=== PATIENT | female | born 1985 | race Native Hawaiian/Other Pacific Islander ===

== ENCOUNTER 2024-04-27 09:29 | Outpatient (REF) | payer MEDICAID, SELFPAY ==
[2024-04-27 11:24] LABS: MANUAL DIFF FLAG NO
[2024-04-27 11:30] LABS: Basophils Percent Auto 0.9 % (0-2); Eosinophils Absolute Auto 0.1 X10*3/uL (0.0-0.4); Eosinophils Percent Auto 2.7 % (0-4); Hematocrit 33.6 % (37.0-47.0); Hemoglobin 11.8 g/dl (12.0-16.0); Imm Gran Abs Auto 0.01 X10*3/uL (0.00-0.03); Imm Gran Pct Auto 0.2 % (0.0-0.4); Lymphocytes Absolute Auto 1.5 X10*3/uL (1.2-4.9); Lymphocytes Percent Auto 34.2 % (20-40); Mean Corpuscular HGB Conc 35.1 g/dl (31.0-35.0); Mean Corpuscular Hemoglobin 31.1 pg (27.0-33.0); Mean Corpuscular Volume 88.7 fL (80.0-98.0); Mean Platelet Volume 10.8 fL (9.4-12.3); Monocytes Absolute Auto 0.3 X10*3/uL (0.1-1.2); Neutrophils Absolute Auto 2.5 x10*3/uL (2.0-8.3); Platelet Count 289 X10*3/uL (160-400); Red Blood Count 3.79 X10*6/uL (4.20-5.50); Red Cell Distribution Width 12.9 % (11.0-16.0); White Blood Count 4.5 X10*3/uL (4.8-10.8)
[2024-04-27 12:09] LABS: Syphilis Screen Nonreactive (Nonreactive)
[2024-04-27 12:10] LABS: HBS Num1 0.68 mIU/mL (0-7.99); HBc Num1 0.11 S/CO (0.00-0.79); HBsAGNum1 0.29 S/CO (0.00-0.99); HIV AB/AG Nonreactive (Nonreactive); HIV Num 1 0.07 S/CO (0.00-0.99); Hepatitis A Antibody IgM 0.32 Index (0-0.79); Hepatitis B Core Antibody Nonreactive (Nonreactive); Hepatitis B Surface Antigen Negative (Negative); ~HepC Num1 0.12 S/CO (0.00-0.79); ~Hepatitis A Antibody IgM Nonreactive (Nonreactive); ~Hepatitis B Surface Antibody NONREACTIVE (Nonreactive); ~Hepatitis C Antibody Nonreactive (Nonreactive)
[2024-04-27 12:11] LABS: Alanine Aminotransferase 16 U/L (0-31); Albumin Level 4.1 g/dL (3.5-5.0); Alkaline Phosphatase 71 U/L (39-117); Anion Gap 9 (12-20); Aspartate Amino Transferase 19 U/L (5-31); Bilirubin Total 0.7 mg/dL (0.0-1.0); Blood Urea Nitrogen 12 mg/dL (9-16); Calcium 9.2 mg/dL (8.4-10.2); Carbon Dioxide 26 mmol/L (22-29); Chloride 108 mmol/L (96-108); Cholesterol 197 mg/dL (<200); Estimated Glomerular Filt Rate > 60; Glucose Random 94 mg/dL (60-115); HDL Cholesterol 48 mg/dL (>40); LDL Cholesterol Calculated 132 mg/dL (<100); Potassium 3.7 mmol/L (3.3-5.1); Sodium 139 mmol/L (135-145); Triglycerides 89 mg/dL (<150); Vitamin D 25-OH Total 16.7 ng/mL (>30)
[2024-04-27 12:47] LABS: Reflex LDLD? No
[2024-04-28 21:08] LABS: Rubeola IgG (Measles) <13.50 AU/mL
== END 2024-04-27 09:30 | disposition home or self-care (01) ==
LOC: HO.HHCL 09:29
PROVIDERS: Visit Provider Internal Medicine
DX: R10.13 Epigastric pain (principal); Z30.09 Encounter for other general counseling and advice on contraception; H53.453 Other localized visual field defect, bilateral
CPT/HCPCS: 36415; 80053; 80061; 82306; 84443; 85025; 86704; 86706; 86709; 86735; 86762; 86765; 86780; 86803; 87338; 87340; 87389

== ENCOUNTER 2024-04-27 14:43 | Outpatient (REF) | payer MEDICAID, SELFPAY | END 2024-04-27 14:44 | disposition home or self-care (01) | LOC: HO.HHCL 14:43 | PROVIDERS: Pediatrics; Visit Provider Internal Medicine | DX: R10.13 Epigastric pain (principal) | CPT/HCPCS: 87338 ==

== ENCOUNTER 2024-05-10 11:12 | Outpatient (REF) | payer MEDICAID, SELFPAY ==
[2024-05-10 14:25] LABS: Ferritin 14 ng/mL (10-122); Iron 119 mcg/dL (30-160); Percent Iron Saturation 35 % (15-50); Total Iron Binding Capacity 344 mcg/dL (228-428); Unsaturated Iron Binding 225 ug/dL
[2024-05-10 14:31] LABS: Folate 12.2 ng/mL (> or = 4.0); Vitamin B12 325 pg/mL (200-900)
== END 2024-05-10 11:13 | disposition home or self-care (01) ==
LOC: HO.HHCL 11:12
PROVIDERS: Visit Provider Internal Medicine
DX: D64.9 Anemia, unspecified (principal)
CPT/HCPCS: 36415; 82607; 82728; 82746; 83540

== ENCOUNTER 2025-06-11 16:44 | Outpatient (REF) | payer MEDICAID, SELFPAY ==
--- OUTSIDE RECORDS SUMMARY | 2025-06-11 14:20 | XMS_ITS | Encounter Summary ---
Author Organization [employer] Address [address] [facility] 7t [place] [address] Care Team Providers Care Wire Bender Hand Name Role Phone Saba Sadler MD Primary Care Provider + Reason for Visit * Reason Comments UTI Fever Encounter Details Date Type Department Care Team (Late st Contact Info) Description 06/11/2025 2:20 PM EDT Office Visit [facility] [address], [place] [phone] Name, MD Vidal [address] [place] [address] Complicated UTI (urinary tract infection) (Primary Dx); Fever, unspecified fever cause Social History Tobacco Use Types Packs/Day Years Used Date Smoking Tobacco: Never Smokeless Tobacco: Never Tobacco Cessation:Counseling Given: Not Answered Alcohol Use Standard Drinks/Week Comments Never 0 (1 standard drink = 0.6 oz pur e alcohol) Depression Answer Date Recorded Patient Health Questionnaire-9 Score 4 04/26/2024 Patient Health Questionnaire-9 Score 4 04/26/2024 Last PHQ-9: Questionnaire Data Not on file 0 04/26/2024 Housing Stability Answer Date Recorded What is your housing situation today? I do not have housing (Staying with others, in a hotel, in a senior care, living outside on the street, on a beach, in a car, or in a park 04/26/[address] you li ve. Do you have problems with any of the following? None of the above 04/26/2024 Food Insecurity Answer Date Recorded Within the past 12 months, y ou worried that your food would run out before you got money to buy more: Often true 04/26/2024 Within the past 12 months,th e food you bought just didn't last and you didn't have enough money to get more: Often true 06/2024 Transportation Answer Date Recorded In the past 12 months, has l ack of transportation kept you from medical appts, meetings, work or from getting things needed for daily living? No 04/26/2024 Utilities Answer Date Recorded In the past 12 months, has t he electric, gas, oil or water company threatened to shut off services in your home? No 04/26/2024 Depression Answer Date Recorded Patient Health Questionnaire-2 Score 2 04/26/2024 Internet Access Answer Date Recorded Internet Access Q1 No 04/26/2024 Internet Access Q2 I do not want or need it 04/16 Comments No Sex and Gender Information Value Date Recorded Sex Assigned at Female 02/04/2023 8:56 AM EDT Legal Sex Female 10:38 AM EDT Gender Identity Female 02/04/2023 8:56 AM EDT Sexual Orientation Don't know 02/04/2023 8: 56 AM EDT documented as of this encounter Last Filed Vital Signs Vital Sign Reading Time Taken Comments Blood Pressure 119/63 06/11/2025 2:21 PM EDT Pulse 92 06/11/2025 2:21 PM EDT Temperature 39.2 C (102.6 F) 06/11/2025 2:21 PM EDT Respiratory Rate 16 06/11/2025 2:21 PM EDT Oxygen Saturation - - Inhaled Oxygen Concentration - - Weight 63.7 kg (140 lb 6.4 oz) 06/11/2025 2:21 P M EDT Height 149.9 cm (4' 11 ) 06/11/2025 2:21 PM EDT Body Mass Index 28.36 06/11/2025 2:21 PM EDT documented in this encounter Progress Notes * Vidal Gleason MD - 06/11/2025 2:20 PM EDT Subjective Patient ID: Leesa Khan is a 40 y.o. female who presents for UTI and Fever. Patient presents for a sick visit complaining of 1 week of fever, chills, body aches, urinary frequency, suprapubic discomfort and CV angle discomfort. She does not have any respiratory symptoms. No vaginal discharge. She has not been sexually active in more than a month. Her last menstrual period was 2 weeks ago. No recent antibiotic use. Review of Systems Constitutional: Positive for chills and fever. HENT: Negative for sore throat. Respiratory: Negative for cough, shortness of breath and wheezing. Cardiovascular: Negative for chest pain, palpitations and leg swelling. Gastrointestinal: Negative for abdominal pain. Genitourinary: Positive for dysuria, frequency and urgency. Negative for hematuria, menstrual problem, pelvic pain and vaginal discharge. Objective Vitals: 06/11/25 1421 BP: 119/63 BP Location: Right arm Patient Position: Sitting BP Cuff Size: Adult Pulse: 92 Resp: 16 Temp: (!) 102.6 ??F (39.2 ??C) TempSrc: Oral Weight: 140 lb 6.4 oz (63.7 kg) Height: 4' 11 (1.499 m) Physical Exam Constitutional: General: She is not in acute distress. Appearance: She is not toxic-appearing. Cardiovascular: Rate and Rhythm: Normal rate and regular rhythm. Pulmonary: Effort: Pulmonary effort is normal. No respiratory distress. Breath sounds: No wheezing. Abdominal: Comments: Mild discomfort on deep palpation of the suprapubic area Genitourinary: Comments: CV angle discomfort on palpation Latest Reference Range & Units 06/11/25 14:33 06/11/25 14:35 06/11/25 14:38 Color, UA Dark Meagan Specific [place], UA 1.015 pH, UA 6.5 Ketones, UA Negative Protein, UA Many Nitrite, UA Negative, None Detected Negative RBC, UA Negative, None Detected Positive ! Clarity, UA Cloudy Glucose, UA Negative Leukocytes, UA Negative, Rare, Trace Many ! Bilirubin UA Negative Urobilinogen, UA 0.2 Influenza A Negative, Indeterminate Negative Influenza B Negative, Indeterminate Negative Rapid COVID Ag Negative Appearance, UA dark yellow !: Data is abnormal Assessment/Plan Diagnoses and all orders for this visit: Complicated UTI (urinary tract infection) Comments: Patient history and exam is consistent with complicated UTI. We will send the urine for culture. She was prescribed 7 days of Cipro , she was recommended rest, drink plenty of fluids acetaminophen asneeded, call or come back if she does not feel much better in the next 48 hours. Orders: - POCT Urinalysis - Urinalysis, Complete, with Reflex to Culture; Future Fever, unspecified fever cause - POCT Rapid Covid-19 BinaxNOW - POCT Rapid Influenza A FLORIAN ID NOW - POCT Rapid Influenza B FLORIAN ID NOW Other orders - ciprofloxacin (Cipro) 500 MG tablet; Take 1 tablet (500 mg) by mouth 2 times daily for 7 days. - acetaminophen (Tylenol 8 Hour) 650 MG ER tablet; Take 1 tablet (650 mg) by mouth every 8 (eight) hours if needed for mild pain. Do not crush, chew, or split. Future Appointments Date Time Provider Department Center 07/03/2025 2:00 PM Natacha Gillespie AD[facility] DENT [facility] 07/17/2025 10:30 AM Saba Sadler MD MEDICINE [facility] documented in this encounter Plan of Treatment Upcoming Encounters Date Type Department Care Team (Late st Contact Info) Description 07/03/2025 2:00 PM EST Office Visit [facility] [address] [place] [address] Natacha Gillespie [address] [place] [address] 07/17/2025 10:30 AM EST Procedure Visit [facility] [address] [place] [address] Saba Sadler MD [address] [place], [place] [phone] Scheduled Orders Name Type Priority Associated Diagnoses Orde r Schedule Urinalysis, Complete, with Reflex to Culture Lab Routine Complicated UTI (urinary tract infection) Expected: 06/11/2025 (Approximate), Expires: 06/11/2026 documented as of this encounter Procedures Procedure Name Priority Date/Time Associated Diagnosis Comments POCT INFLUENZA B (ID NOW RAPID MOLECULAR) Routine 06/11/2025 2:38 PM EDT Fever, unspecified fever cause POCT INFLUENZA A (ID NOW RAPID MOLECULAR) Routine 06/11/2025 2:38 PM EDT Fever, unspecified fever cause POCT RAPID COVID ANTIGEN Routine 06/11/2025 2:35 PM EDT Fever, unspecified fever cause POCT URINALYSIS DIPSTICK Routine 06/11/2025 2:33 PM EDT Complicated UTI (urinary tract infection) documented in this encounter Results * POCT Rapid Influenza B FLORIAN ID NOW (06/11/2025 2:38 PM EDT) Influenza B Negative Negative, Indeterminate [facility] QC Media Lot # [id number] [facility] Lot# Expiration Date [facility] Swab 06/11/2025 2:38 PM EDT us Vidal Gleason MD POINT OF CARE TEST ENTER/EDIT OR DERABLES Final Result Performing Organization Address [facility] Co de Phone Number [facility] [address] [place] [phone] * POCT Rapid Influenza A FLORIAN ID NOW (06/11/2025 2:38 PM EDT) Influenza A Negative Negative, Indeterminate [facility] QC Media Lot # [id number] [facility] Lot# Expiration Date [facility] Swab 06/11/2025 2:38 PM EDT us Vidal Gleason MD POINT OF CARE TEST ENTER/EDIT OR DERABLES Final Result Performing Organization Address City/[facility]/ZIP Co de Phone Number [facility] [address] [place] [phone] * POCT Rapid Covid-19 BinaxNOW (06/11/2025 2:35 PM EDT) Rapid COVID Ag Negative QC Media Lot # [id number] Lot# Expiration Date [id number] Swab 06/11/2025 2:35 PM EDT us Vidal Gleason MD POINT OF CARE TEST ENTER/EDIT OR DERABLES Final Result * (ABNORMAL) POCT Urinalysis (06/11/2025 2:33 PM EDT) Color, UA Dark Meagan Clarity, UA Cloudy Glucose, UA Negative Bilirubin, UA Negative Ketones, UA Negative Spec Grav, UA 1.015 Blood, UA Positive(A) Negative, None Detected Comment:moderate pH, UA 6.5 Protein, UA Many Comment:30 mg/dL Urobilinogen, UA 0.2 Leukocytes, UA Many(A) Negative, Rare, Trace Comment:small Nitrite, UA Negative Negative, None Detected Appearance, UA dark yellow QC Media Lot # [id number] Lot# Expiration Date 04 Urine (Urine, Random) 06/11/2025 2:33 PM EDT Vidal Gleason MD POINT OF CARE TEST ENTER/EDIT OR DERABLES Final Result documented in this encounter Visit Diagnoses Diagnosis Complicated UTI (urinary tract infection)- Primary Fever, unspecified fever cause documented in this encounter Additional Health Concerns Assessment Noted Time PHQ-9 Depression Total Score: 4 04/26/20 24 9:39 AM EDT documented as of this encounter Care Teams Wire Bender Hand Relationship Specialty Start Date End Date Saba Sadler MD [address] [place] [phone] PCP - General Internal Medicine 04/26/24 documented as of this encounter
[2025-06-11 18:41] LABS: Appearance Urine Cloudy; Glucose Urine UA Negative (Negative); PH 6.0 (5.0-9.0); Specific Gravity - Urine 1.015 (1.005-1.025); UMIC TRIGGER UACC YES
--- OUTSIDE RECORDS SUMMARY | 2025-06-11 19:21 | XMS_ITS | Encounter Summary ---
Author Organization [facility] Address [address] [place] [phone] Phone Care Team Providers Care Api Architect Name Role Phone Pcp, Unknown Primary Care Provider Unavailabl e Encounter Details Date Type Department Care Team (Late st Contact Info) Description 01/19/2023 Procedure Pass [facility], [facility] Scan - [facility] [address] [place] [address] Social History Tobacco Use Types Packs/Day Years Used Date Smoking Tobacco: Never Assessed Education Answer Date Recorded Are you interested in more education? Not on elsi e 01/19/2023 Are you concerned about learning? Not on file 01/19/2023 No 01/19/2023 No 01/19/2023 Digital Access Answer Date Recorded No 01/19/2023 No 01/19/2023 Reliable internet access at home? Not on file 01/19/2023 Device with a working camera? Not on file Intimate Partner Violence Answer Date R ecorded Are you denied basic needs s uch as food, clothing, or medical care? No 01/19/2023 In the past 12 months have y ou been in a relationship with a person who hurts, threatens, or tries to control you? No 01/19/2023 Are you denied basic needs s uch as food, clothing, or medical care? No 01/19/2023 In the past 12 months have y ou been in a relationship with a person who hurts, threatens, or tries to control you? No 01/19/2023 Comments Unknown Sex and Gender Information Value Date Recorded Sex Assigned at Not on file Legal Sex Female 5:11 PM EDT Gender Identity Not on file Sexual Orientation Not on file documented as of this encounter Functional Status * Calculated C-SSRS Risk Score (Lifetime/Recent) Answer Date of Assessment Author No Risk Indicated 01/19/2023 6:10 PM EDT Lion Lai RN * Fine Suicide Severity Rating Scale (Screener/Recent Self-Report) Question Answer Date of Assessment Author 1. Wish to be (Past 1 Month) No 023 6:10 PM EDT Lion Lai RN 2. Non-Specific Active Suici charly Thoughts (Past 1 Month) No 01/19/2023 6:10 PM EDT Owen Lai RN 6. Suicidal Behavior (Lifetime) No 6:10 PM EDT Lion Lai, OSVALDO documented as of this encounter Plan of Treatment Not on file documented as of this encounter Visit Diagnoses Not on filedocumented in this encounter Care Teams Api Architect Relationship Specialty Start Date End Date Pcp, Unknown PCP - General 01/19/23 documented as of this encounter Additional Source Comments The information contained in this document represents components of the legal health record. It is not the complete legal health record.[facility]
--- OUTSIDE RECORDS SUMMARY | 2025-06-11 19:21 | XMS_ITS | Encounter Summary ---
Author Organization [id number] Address [address] [facility] 7 [place] [address] Care Team Providers Care Instrument Sterilizer Name Role Phone Saba Sadler MD Primary Care Provider + Reason for Visit * Reason Onset Date Comments New patient 05/18/2023 Encounter Details Date Type Department Care Team (Late st Contact Info) Description 05/18/2023 Telephone [facility] [address], [place] [phone] Windy Leo MD [address] [place], [place] [phone] New patient Social History Tobacco Use Types Packs/Day Years Used Date Smoking Tobacco: Never Smokeless Tobacco: Never Alcohol Use Standard Drinks/Week Comments Defer 0 (1 standard drink = 0.6 oz pur e alcohol) Comments Unknown Sex and Gender Information Value Date Recorded Sex Assigned at Female 02/04/2023 8:56 AM EDT Legal Sex Female 10:38 AM EDT Gender Identity Female 02/04/2023 8:56 AM EDT Sexual Orientation Don't know 02/04/2023 8: 56 AM EDT documented as of this encounter Miscellaneous Notes * Telephone Encounter - Wood Mcgovern - 05/18/2023 4:10 PM EDT DERRICK Mclaughlin called pt to Offer [facility] appt. Pt demographics and insurance information were verified. Pt states following medical conditions: NO Pt reports taking medications: NO Pt given [facility] appt with Dr. Petty on 07/02/2023 10:15 am. Pt will be sent appt reminder card and medical release form and agrees to complete and to return to medical records prior to [facility] appt. documented in this encounter Plan of Treatment Upcoming Encounters Date Type Department Care Team (Late st Contact Info) Description 07/03/2025 2:00 PM EST Office Visit [facility] [address] [place] [address] Natacha Gillespie [address] [place] [address] 07/17/2025 10:30 AM EST Procedure Visit [facility] [address] [place] [address] Saba Sadler MD [address] [place] [address] documented as of this encounter Visit Diagnoses Not on filedocumented in this encounter Care Teams Instrument Sterilizer Relationship Specialty Start Date End Date Saba Sadler MD [address] [place] [phone] PCP - General Internal Medicine 04/26/24 documented as of this encounter
--- OUTSIDE RECORDS SUMMARY | 2025-06-11 19:21 | XMS_ITS | Clinical Summary ---
Author Organization [facility] Address [address] [place] [phone] Phone Care Team Providers Care Foster Winder Name Role Phone Pcp, Unknown Primary Care Provider Unavailabl e Allergies No known active allergies Medications ibuprofen (ADVIL,MOTRIN) 600 MG tablet Take 1 tablet (600 mg total) by mouth every 6 (six) hours as needed for pain (specific location in comments). 30 tablet 1 01/19/2023 Active Social History Tobacco Use Types Packs/Day Years [...] on file Sexual Orientation Not on file Last Filed Vital Signs Vital Sign Reading Time Taken Comments Blood Pressure 109/64 01/19/2023 5:40 PM EDT Pulse 65 01/19/2023 5:40 PM EDT Temperature 36.6 C (97.8 F) 01/19/2023 8:59 PM EDT Respiratory Rate 16 01/19/2023 8:59 PM EDT Oxygen Saturation 98% 01/19/2023 8:59 PM EDT Inhaled Oxygen Concentration - - Weight 65.8 kg (145 lb) 01/19/2023 5:40 PM EDT Height 145 cm (4' 9.09 ) 01/19/2023 5:40 PM EDT Body Mass Index 31.28 01/19/2023 5:40 PM EDT Plan of Treatment Health Maintenance Due Date Last Done Comments Adult Td,Tdap Booster 1986 DEPRESSION SCREENING 1998 SMOKING Hx and SMOKELESS TOB ACCO SCREENING 1999 HEPATITIS C SCREENING 2004 HIV ONE-TIME SCREENING (18-6 5 YEARS) 2004 PAP SMEAR 2007 SCREENING FOR DIABETES 2021 INFLUENZA VACCINE (#1) 2025 COVID-19 VACCINE ( - 2024-2 6 season) 2025 HEPATITIS A VACCINES Aged Out No long er eligible based on patient's age to complete this topic HIB VACCINES Aged Out No longer eligi ble based on patient's age to complete this topic MENINGOCOCCAL VACCINES (ACWY) Aged Out No longer eligible based on patient's age to complete this topic MENINGOCOCCAL VACCINES (B) Aged Out N o longer eligible based on patient's age to complete this topic PNEUMOCOCCAL VACCINES (0-49 years) Aged Out No longer eligible based on patient's age to complete this topic Medical Devices Not on file Insurance [employer] Member Subscriber Plan / Payer (Ef fective 2023-Present) Name:Leesa Khan Relation to Subscriber:Self Name:Leesa Khan Payer ID:[id number] Group ID:Not on file Type:Medicaid Address: [address] SAFETY NET FULL [employer] NET [employer] [place] [address] [place] [address] NET FULL [employer] Member Subscriber Plan / Payer (Ef fective 2023-Present) Name:Leesa Khan Relation to Subscriber:Self Name:Leesa Khan Payer ID:[id number] Group ID:Not on file Type:Medicaid Address: [address] SAFET[employer] NET FULL [employer] NET FULL Care Teams Foster Winder Relationship Specialty Start Date End Date Pcp, Unknown PCP - General 01/19/23 Additional Source Comments The information contained in this document represents components of the legal health record. It is not the complete legal health record.[facility]
--- OUTSIDE RECORDS SUMMARY | 2025-06-11 19:21 | XMS_ITS | Encounter Summary ---
Author Organization [employer] Address [address] [place] [address] Care Team Providers Care Brand Sales Consultant Name Role Phone Saba Sadler MD Primary Care Provider + Encounter Details Date Type Department Care Team (Latest Contact Info) Description 06/11/2025 Travel Social History Tobacco Use Types Packs/Day Years Used Date Smoking Tobacco: Never Smokeless Tobacco: Never Alcohol Use Standard Drinks/Week Comments Never 0 [...] with others, in a hotel, in a long-term, living outside on the street, on a [...] AM EDT documented as of this encounter Plan of Treatment Upcoming Encounters Date Type Department Care Team (Late st Contact Info) Description 07/03/2025 2:00 PM EST Office Visit [facility] [address] [place] [address] Verna, Natacha [address] [place] [address] 07/17/2025 10:30 AM EST Procedure Visit [facility] [address] [place] [address] Saba Sadler MD [address] [place] [address] documented as of this encounter Visit Diagnoses Not on filedocumented in this encounter Additional Health Concerns Assessment Noted Time PHQ-9 Depression Total Score: 4 04/26/20 24 9:39 AM EDT documented as of this encounter Care Teams Brand Sales Consultant Relationship Specialty Start Date End Date Saba Sadler MD [address] [place] [phone] PCP - General Internal Medicine 04/26/24 documented as of this encounter
--- OUTSIDE RECORDS SUMMARY | 2025-06-11 19:21 | XMS_ITS | Encounter Summary ---
Author Organization [employer] Address [address] [facility] 7t [place] [address] Care Team Providers Care Sales And Marketing Vice President Name Role Phone Saba Sadler MD Primary Care Provider + Reason for Visit * Reason Onset Date Comments telephone call 06/11/2025 Encounter Details Date Type Department Care Team ([facility] st Contact Info) Description 06/11/2025 Telephone [facility] [address] [place], [place] [phone] Saba Sadler MD [address] [place], [place] [phone] telephone call Social History Tobacco Use Types Packs/Day Years [...] with others, in a hotel, in a [place] [facility], living outside on the street, on a [...] encounter Miscellaneous Notes * Telephone Encounter - Edith Tejada RN - 06/11/2025 2:24 PM EDT Noted. Patient seen in [facility] today at 1pm, below concerns addressed. No further f/u needed at this time. * Telephone Encounter - Mechelle Charles - 06/11/2025 10:38 AM EDT Pt walked in stating since Wednesday she has been having pain near her pelvic area and every time she goes to urinate its hurting her. Best contact number is [phone] canadian speaking documented in this encounter Plan of Treatment Upcoming Encounters Date Type Department Care Team (Late st Contact Info) Description 07/03/2025 2:00 PM EST Office Visit [facility] [address] [place] [address] Kash Gillespiearis [address] [place] [address] 07/17/2025 10:30 AM EST Procedure Visit [facility] [address] [place] [address] Saba Sadler MD [address] [place] [address] documented as of this encounter Visit Diagnoses Not on filedocumented in this encounter Additional Health Concerns Assessment Noted Time PHQ-9 Depression Total Score: 4 04/26/20 24 9:39 AM EDT documented as of this encounter Care Teams Sales And Marketing Vice President Relationship Specialty Start Date End Date Saba Sadler MD [address] [place] [address] PCP - General Internal Medicine 04/26/24 documented as of this encounter
--- OUTSIDE RECORDS SUMMARY | 2025-06-11 19:21 | XMS_ITS | Encounter Summary ---
Author Organization [employer] Address [address] [facility] 7t [place] [address] Care Team Providers Care Toppiece Chopper Name Role Phone Erika Cruz DO Primary Care Provider [phone] Saba Sadler MD Primary Care Provider + Encounter Details Date Type Department Care Team (Late st Contact Info) Description 02/08/2023 Abstract [facility] [address] [place] [address] Social History Tobacco Use Types Packs/Day Years Used Date Smoking Tobacco: Never Smokeless Tobacco: Never Comments Unknown Sex and Gender Information Value Date Recorded Sex Assigned at Female 02/04/2023 8:56 AM EDT Legal Sex Female 10:38 AM EDT Gender Identity Female 02/04/2023 8:56 AM EDT Sexual Orientation Don't know 02/04/2023 8: 56 AM EDT COVID-19 Exposure Response Date Recorded In the last 10 days, have yo u been in contact with someone who was confirmed or suspected to have Coronavirus/COVID-19? No / Unsure 02/04/2023 8:54 AM EDT documented as of this encounter Plan of Treatment Upcoming Encounters Date Type Department Care Team (Late st Contact Info) Description 07/03/2025 2:00 PM EST Office Visit [facility] [address] [place] [address] Natacha Gillespie [address] [place] [address] 07/17/2025 10:30 AM EST Procedure Visit [facility] [address] [place] [address] Saba Sadler MD [address] [place] [address] documented as of this encounter Visit Diagnoses Not on filedocumented in this encounter Care Teams Toppiece Chopper Relationship Specialty Start Date End Date Erika Cruz DO [address] [place] [address] PCP - General Family Medicine 02/05/23 05/17/23 Saba Sadler MD [address] [place] [address] PCP - General Internal Medicine 04/26/24 documented as of this encounter
--- OUTSIDE RECORDS SUMMARY | 2025-06-11 19:21 | XMS_ITS | Clinical Summary ---
Author Organization [employer] Address [address] [place] [address] Care Team Providers Care Political Researcher Name Role Phone Saba Sadler MD Primary Care Provider + Allergies No known active allergies Medications multivitamin () 27-0.8 MG tablet Take 1 tablet by mouth Once per day. 30 tablet 11 04/26/20 24 Active omeprazole OTC (PriLOSEC OTC) 20 MG EC tablet Take 1 tablet (20 mg) by mouth before breakfast and before evening meal. 120 tablet 09/01/19 25 Active ibuprofen 600 MG tablet Take 1 tablet (600 mg) by mouth 3 times daily. 30 tablet 05/25/20 25 Active chlorhexidine (Peridex) 0.12 % solution Use 15 mL in the mouth or throat if needed (for mouthwash 15 ml for 30 seconds, swish and spit) for up to 14 days. 473 mL 05/28/20 25 025 Active ciprofloxacin (Cipro) 500 MG tablet Take 1 tablet (500 mg) by mouth 2 times daily for 7 days. 14 tablet 06/11/20 25 025 Active acetaminophen (Tylenol 8 Hour) 650 MG ER tablet Take 1 tablet (650 mg) by mouth every 8 (eight) hours if needed for mild pain. Do not crush, chew, or split. 30 tablet 06/11/20 25 Active acetaminophen (Tylenol 8 Hour) 650 MG ER tablet Take 1 tablet (650 mg) by mouth every 8 (eight) hours if needed for mild pain. Do not crush, chew, or split. 30 tablet 04/09/20 25 025 Discontinued ibuprofen 600 MG tablet Take 1 tablet (600 mg) by mouth 3 times daily. 20 tablet 1 04/09/20 25 025 Discontinued ibuprofen 800 MG tablet Take 1 tablet (800 mg) by mouth every 8 (eight) hours if needed for mild pain for up to 10 days. 15 tablet 05/04/20 25 025 acetaminophen (Tylenol 8 Hour) 650 MG ER tablet Take 1 tablet (650 mg) by mouth every 8 (eight) hours if needed for mild pain. Do not crush, chew, or split. 30 tablet 05/25/20 25 025 Discontinued(Re order (will not trigger notification to Pharmacy)) amoxicillin (Amoxil) 500 MG capsule Take 1 capsule (500 mg) by mouth every 8 (eight) hours for 7 days. 21 capsule 05/25/20 25 025 amoxicillin (Amoxil) 500 MG capsule Take 1 capsule (500 mg) by mouth every 8 (eight) hours for 7 days. 21 capsule 05/28/20 025 Discontinued ibuprofen 800 MG tablet Take 1 tablet (800 mg) by mouth every 8 (eight) hours if needed for mild pain for up to 10 days. 15 tablet 05/28/20 25 025 Discontinued acetaminophen (Tylenol 8 Hour) 650 MG ER tablet Take 1 tablet (650 mg) by mouth every 8 (eight) hours if needed for moderate pain for up to 10 days. Do not crush, chew, or split. 15 tablet 05/28/20 25 025 Discontinued Active Problems Problem Noted Date Diagnosed Date Dental abscess 04/09/2025 Pain 04/09/2025 Helicobacter pylori stool test positive 09/01/19 Assessment & Plan (09/01/2024 1:50 PM EST): S/P Prevpac treatment, mildly asymptomatic. Take Sucralfate PRN for abdominal pain for the next 2-5 days. Continue Omeprazole BID to complete 2 months treatment. FU in 2-3 weeks with CURE test if needed. Consider GI referral if symptoms do not resolve. Anemia 05/01/2024 Assessment & Plan (09/01/2024 1:53 PM EST): Most likely due to menstrual bleeding vs GI bleeding from gastritis. Due to current PUD symptoms I will hold on PO Iron pills. I gave her information on iron rich foods. FU hemoglobin in 3 months. Advised her to restart multivitamin as soon as possible. Vitamin D deficiency 05/01/2024 Pure hypercholesterolemia 05/01/2024 Assessment & Plan (09/01/2024 1:54 PM EST): Recommended moderate amount of exercise and increase consumption of fruit, vegetables, fish and high fiber foods. Should decrease consumption of highly saturated fats or trans fats. Patient will reschedule with me for pap smear. Patient will have COVID and Influenza vaccines administered today. Epigastric pain 04/26/2024 Assessment & Plan (04/26/2024 11:00 AM EDT): - most likely GERD, r/o h. 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 Secondary dental caries 04/01/2023 Acute cystitis 03/18/2023 Resolved Problems Problem Noted Date Diagnosed Date Resolved Date Decreased peripheral vision of both eyes 04/26/2024 08/30/2024 Assessment & Plan (04/26/2024 10:28 AM EDT): - needs eye clinic eval, will refer Encounters Date Type Department Care Team Description 06/11/2025 2:20 PM EDT Office Visit [facility] [address] [place] [id number] Name, MD Vidal Complicated UTI (urinary tract infection) (Primary Dx); Fever, unspecified fever cause 06/11/2025 Telephone [facility] [address] [place] [address] Saba Sadler MD telephone call 06/11/2025 Travel 05/28/2025 10:00 AM EDT Office Visit [facility] [address] [place] [address] Qi Fonseca, SRUTHI Gingivitis due to dental plaque with local contributing factor (Primary Dx) 05/25/2025 3:30 PM EDT Office Visit [facility] [address] [place] [address] Teodoro Lezama DDS Dental abscess (Primary Dx); Secondary dental caries 05/04/2025 9:00 AM EDT Office Visit [facility] [address] [place] [address] Qi Fonseca DDS Failing root canal (Primary Dx); Gingivitis due to dental plaque with local contributing factor 05/01/2025 Telephone [facility] [address] [place] [address] Saba Sadler MD appointment cancelled 05/01/2025 Telephone [facility] [address] [place] [address] Saba Sadler MD appt change 04/09/2025 10:00 AM EDT Office Visit [facility] [address] [place] [address] Teodoro Lezama DDS Dental abscess (Primary Dx); Pain from Last 3 Months Immunizations Immunization Administration Dates Next Due Influenza, seasonal, injectable, preservative fr ee 09/01/2024 Pfizer Covid-19 Vaccine 12+ 09/01/2024 Social History Tobacco Use Types Packs/Day Years [...] with others, in a hotel, in a residential, living outside on the street, on a [...] Don't know 02/04/2023 8: 56 AM EDT Last Filed Vital Signs Vital Sign Reading Time Taken Comments Blood Pressure 119/63 06/11/2025 2:21 PM EDT Pulse 92 06/11/2025 2:21 PM EDT Temperature 39.2 C (102.6 F) 06/11/2025 2:21 PM EDT Respiratory Rate 16 06/11/2025 2:21 PM EDT Oxygen Saturation 98% 04/26/2024 9:38 AM EDT Inhaled Oxygen Concentration - - Weight 63.7 kg (140 lb 6.4 oz) 06/11/2025 2:21 P M EDT Height 149.9 cm (4' 11 ) 06/11/2025 2:21 PM EDT Body Mass Index 28.36 06/11/2025 2:21 PM EDT Plan of Treatment Upcoming Encounters Date Type Department Care Team (Late st Contact Info) Description 07/03/2025 2:00 PM EST Office Visit [facility] [address] [place] [address] Natacha Gillespie [address] [place] [address] 07/17/2025 10:30 AM EST Procedure Visit [facility] [address] [place] [address] Saba Sadler MD [address] [place] [address] Health Maintenance Due Date Last Done Comments Disability Screening 1986 Alcohol/Substance Use Screening 1998 Family Planning (PISQ) 2001 HPV Vaccines (1 - 3-dose series) 2001 DTaP/Tdap/Td Vaccines (1 - Tdap) 2005 Hepatitis B Vaccines (1 of 3 - 19+ 3-dose series) 2005 Pap Smear 2007 Cervical Cancer Screening 2016 HPV/Cotest 2016 Dental Oral Exam 09/06/2023 03/05/2023 Dental Prophylaxis 09/11/2023 03/10/2023 Influenza Vaccine (#1) 2025 09/01/2024 Depression Screening 04/26/2025 04/26/2024, 04/26/20 24 SDOH Screening 04/26/2025 04/26/2024 Dental X-Ray: Full Mouth 03/06/2026 03/05/2023 Dental X-Ray: Bitewings 05/05/2026 05/04/20 25, 12/01/2023, 09/22/2023, Additional history exists Tobacco Screening 06/11/2026 06/11/2025 Zoster Vaccines (1 of 2) 2036 RSV Patients and Patients Aged 60 years or older (1 - 1-dose 75+ series) 2061 HIV Screening Completed 04/27/2024 Hepatitis C Screening Completed 04/27/2024 COVID-19 Vaccine Completed 09/01/2024 HIB Vaccines Aged Out No longer eligi ble based on patient's age to complete this topic Hepatitis A Vaccines Aged Out No long er eligible based on patient's age to complete this topic IPV Vaccines Aged Out No longer eligi ble based on patient's age to complete this topic Meningococcal B Vaccine Aged Out No l onger eligible based on patient's age to complete this topic Meningococcal Vaccine Aged Out No nat jeny eligible based on patient's age to complete this topic Pneumococcal Vaccine: Pediatrics (0 to 5 Years) and At-Risk Patients (6 to 49) Years Aged Out No longer eligible based on patient's age to complete this topic RSV under 20 months Aged Out No longe r eligible based on patient's age to complete this topic Rotavirus Vaccines Aged Out No longer eligible based on patient's age to complete this topic Procedures Procedure Name Priority Date/Time Associated Diagnosis [...] PM EDT Complicated UTI (urinary tract infection) CASE PRESENTATION, DETAILED AND EXTENSIVE TREATMENT PLANNING Routine 05/28/2025 10:00 AM EDT Gingivitis due to dental plaque with local contributing factor CONSULTATION - DIAGNOSTIC SERVICE PROVIDED BY DENTIST OR PHYSICIAN OTHER THAN REQUESTING DENTIST OR PHYSICIAN Routine 05/28/2025 10:00 AM EDT Gingivitis due to dental plaque with local contributing factor CASE PRESENTATION, DETAILED AND EXTENSIVE TREATMENT PLANNING Routine 05/25/2025 3:30 PM EDT INTRAORAL - PERIAPICAL FIRST RADIOGRAPHIC IMAGE Routine 05/25/2025 3:30 PM EDT LIMITED ORAL EVALUATION - PROBLEM FOCUSED Routine 05/25/2025 3:30 PM EDT CASE PRESENTATION, DETAILED AND EXTENSIVE TREATMENT PLANNING Routine 05/04/2025 9:00 AM EDT Failing root canal Gingivitis due to dental plaque with local contributing factor BITEWING - SINGLE RADIOGRAPHIC IMAGE Routine 05/04/2025 9:00 AM EDT Failing root canal Gingivitis due to dental plaque with local contributing factor INTRAORAL - PERIAPICAL FIRST RADIOGRAPHIC IMAGE Routine 05/04/2025 9:00 AM EDT Failing root canal Gingivitis due to dental plaque with local contributing factor LIMITED ORAL EVALUATION - PROBLEM FOCUSED Routine 05/04/2025 9:00 AM EDT Failing root canal Gingivitis due to dental plaque with local contributing factor CASE PRESENTATION, DETAILED AND EXTENSIVE TREATMENT PLANNING Routine 04/09/2025 10:00 AM EDT LIMITED ORAL EVALUATION - PROBLEM FOCUSED Routine 04/09/2025 10:00 AM EDT INTRAORAL - PERIAPICAL FIRST RADIOGRAPHIC IMAGE Routine 04/09/2025 10:00 AM EDT HEPATITIS PANEL, GENERAL Routine 04/27/2024 9:33 AM EDT Epigastric pain HIV 1/2 ANTIGEN/ANTIBODY, FOURTH GENERATION W/RFL Routine 04/27/2024 9:33 AM EDT Encounter for other general counseling or advice on contraception PROPHYLAXIS - ADULT Routine 03/10/2023 1 :00 PM EDT INTRAORAL - COMPLETE SERIES OF RADIOGRAPHIC IMAGES Routine 03/05/2023 11:00 AM EDT COMPREHENSIVE ORAL EVALUATION - NEW OR ESTABLISHED PATIENT Routine 03/05/2023 11:00 AM EDT from Last 3 Months or Most Recently Relevant to Health Maintenance Results * POCT Rapid Influenza B FLORIAN ID NOW (06/11/2025 2:38 PM EDT) [facility] Influenza B Negative Negative, Indeterminate [facility] QC Media Lot # [id number] [facility] Lot# Expiration Date [facility] Swab 06/11/2025 2:38 PM EDT us Vidalmary Gleason MD POINT OF CARE TEST ENTER/EDIT OR DERABLES Final Result [facility] [address] [place] [phone] * POCT Rapid Influenza A FLORIAN ID NOW (06/11/2025 2:38 PM EDT) [facility] Influenza A Negative Negative, Indeterminate [facility] QC Media Lot # [id number] [facility] Lot# Expiration Date [facility] Swab 06/11/2025 2:38 PM EDT Result [facility] POINT OF CARE TEST ENTER/EDIT OR DERABLES Final Result [facility] [address] [place] [phone] * POCT Rapid Covid-19 BinaxNOW (06/11/2025 2:35 PM EDT) [facility] Rapid COVID Ag Negative QC Media Lot # [id number] Lot# Expiration Date [id number] Swab 06/11/2025 2:35 PM EDT Result [facility] POINT OF CARE TEST ENTER/EDIT OR DERABLES Final Result * (ABNORMAL) POCT Urinalysis (06/11/2025 2:33 PM EDT) Pathologist [facility] Color, UA Dark Meagan Clarity, UA Cloudy Glucose, UA Negative Bilirubin, UA Negative Ketones, UA Negative Spec Grav, UA 1.015 Blood, UA Positive(A) Negative, None Detected Comment:moderate pH, UA 6.5 Protein, UA Many Comment:30 mg/dL Urobilinogen, UA 0.2 Leukocytes, UA Many(A) Negative, Rare, Trace Comment:small Nitrite, UA Negative Negative, None Detected Appearance, UA dark yellow QC Media Lot # [id number] Lot# Expiration Date [id number] Urine (Urine, Random) 06/11/2025 2:33 PM EDT Result [facility] POINT OF CARE TEST ENTER/EDIT OR DERABLES Final Result * Hepatitis Panel, General (04/27/2024 9:33 AM EDT) Pathologist [facility] Hepatitis A IgM Nonreactive Nonreactive [facility] Comment:IgM antibodies to CARTER V not detected; does not exclude earlyacute or recovered HAV infection. ~Hepatitis B Surface Antibody NONREACTIVE Nonreactive [facility] Comment:Nonreactive: < 8.00 mIU/mL Hepatitis B Core Antibody Nonreactive Nonreactive [facility] Hepatitis C Antibody Nonreactive Nonreactive [facility] Comment:Antibodies to HCV no t detected; does not exclude early acuteHCV infection. Hepatitis B Surface Ag Negative Negative [facility] Blood 04/27/2024 9:33 AM EDT 04/27/2024 11:19 AM EDT us Saba Sadler MD LAB BLOOD ORDERABLES Fin al Result Performing Organization Address [facility] Co de Phone Number [facility] [address] [place] [phone] * HIV-1/2 Antigen and Antibodies, Fourth Generation, with Reflexes (04/27/2024 9:33 AM EDT) HIV AB/AG Nonreactive Nonreactive [facility] Comment:HIV-1 p24 Ag and/or HIV-1/HIV-2 Ab not detected.A test result that is nonreactive does not exclude thepossibility of exposure to or infection with HIV-1 and/orHIV-2. Nonreactive results in this assay for individualswith prior exposure to HIV-1 and/or HIV-2 may be due toantigen and antibody levels that are below the limit ofdetection of this assay.The InhibOx HIV Ag/Ab Combo assay result andsupplemental assay results should be interpreted inconjunction with the patient's clinical presentation,history and other laboratory results. If the results areinconsistent with clinical evidence, additional testing issuggested to confirm the result. Blood Venous blood specimen / Unknown 04/27/2024 9:33 AM EDT 04/27/2024 11:19 AM EDT us Saba Sadler MD LAB BLOOD ORDERABLES Fin al Result Performing Organization Address City/[facility]/ZIP Co de Phone Number [facility] [address] [place] [phone] from Last 3 Months or Most Recently Relevant to Health Maintenance Insurance [place] F[place] DENTAL - HSN FULL (MEDICAID) DENTAL-[facility] MEDICAID LIMITED ADULT Care Teams Political Researcher Relationship Specialty Start Date End Date Saba Sadler MD [address] [place] [phone] PCP - General Internal Medicine 04/26/24
[2025-06-11 20:37] LABS: UACC Culture Trigger YES
== END 2025-06-11 16:45 | disposition home or self-care (01) ==
LOC: HO.HHCLNP 16:44
PROVIDERS: Visit Provider Internal Medicine Geriatric Medicine
DX: R39.9 Unspecified symptoms and signs involving the genitourinary system (principal)
CPT/HCPCS: 81001; 87086; 87088; 87186

== ENCOUNTER 2025-07-17 16:25 | Outpatient (REF) | payer MEDICAID, SELFPAY ==
--- OUTSIDE RECORDS SUMMARY | 2025-07-17 10:30 | XMS_ITS | Encounter Summary ---
Author Organization [facility] Address [address] [place] [address] Care Team Providers Care Manager Freelance Name Role Phone Saba Sadler MD Primary Care Provider + Reason for Visit * Reason Comments Gynecologic Exam Encounter Details Date Type Department Care Team (Latest Contact Info) Description 07/17/2025 10:30 AM EST Procedure Visit [facility] [address], [place] [phone] Saba Sadler MD [address] [place], [place] [phone] Encounter for cervical Pap smear with pelvic exam (Primary Dx); Encounter for other general counseling or advice on contraception; Other iron deficiency anemia; Vaginal discharge Social History Tobacco Use Types Packs/Day Years [...] with others, in a hotel, in a detention, living outside on the street, on a [...] Sign Reading Time Taken Comments Blood Pressure 100/62 07/17/2025 12:12 PM EST Pulse 80 07/17/2025 12:12 PM EST Temperature 36.4 C (97.6 F) 07/17/2025 12:12 PM EST Respiratory Rate 18 07/17/2025 12:12 PM EST Oxygen Saturation - - Inhaled Oxygen Concentration - - Weight 65.8 kg (145 lb) 07/17/2025 12:12 PM EST Height 149.9 cm (4' 11 ) 07/17/2025 12:12 PM EST Body Mass Index 29.29 07/17/2025 12:12 PM EST documented in this encounter Miscellaneous Notes * Patient Education Note - Saba Sadler MD - 07/17/2025 6:28 PM EST Images from the original note were not included. Patient Education Table of Contents Dieta con alto contenido de donna (Iron-Rich Diet) To view videos and all your education online visit, [email or web address] or scan this QR code with your smartphone. Access to this content will in one year. Dieta con alto contenido de donna Iron-Rich Diet El donna es un mineral que ayuda al organismo a producir hemoglobina. La hemoglobina es jose carlos prote?na de los gl?bulos rojos que transporta el ox?nellie a los tejidos del cuerpo. Consumir muy poco donna puede hacer que se sienta d?alexander y cansado, y aumentar thibodeaux riesgo de contraer infecciones. El hierroes un componente natural de muchos alimentos, y muchos otros alimentos tienen donna agregado (est?n fortificados con donna). Es posible que deba seguir jose carlos dieta con alto contenido de donna si no tiene suficiente dnona en el cuerpo debido a ciertas enfermedades. La cantidad de potasio que necesita diariamente depende de thibodeaux edad, thibodeaux sexo y las afecciones que pueda tener. Siga las recomendaciones de thibodeaux m?dico o nutricionista sobre la cantidad de donna que necesita consumir por d?a. ?Cu?les son algunos consejos para seguir nya plan? Thuy las etiquetas de los alimentos Thuy las etiquetas de los alimentos para saber la cantidad de miligramos (mg) de donna que hay en cada porci?n. Al cocinar [place] los alimentos en ollas de donna. [place] estas medidas para que el cuerpo pueda absorber el donna de ciertos alimentos con m?s facilidad: ? Antes de cocinarlos, remoje los frijoles lyla la noche. ? Remoje los cereales integrales lyla la noche y cu?lelos antes de usarlos para cocinar. ? Prepare un fermento con las harinas antes del horneado, por ejemplo, usando levadura en la masa del sanford. Planificaci?n de las comidas Cuando coma alimentos que contengan donna, debe comerlos con alimentos ricos en vitamina C. Entre ellos, se incluyen las naranjas, los pimientos, los tomates, las dana y el addie. La vitamina C ayuda al organismo a absorber el donna. Ciertos alimentos y bebidas impiden que el cuerpo absorba el donna adecuadamente. No consuma estosalimentos en la misma comida que aquellos con alto contenido de donna o con suplementos de donna.Estos alimentos incluyen: ? Caf?, t?? chi y vino tinto. ? Leche, productos l?cteos y alimentos con alto contenido de calcio. ? Porotos y soja. ? Cereales integrales. Informaci?n general [place] los suplementos de donna solamente harley se lo haya indicado el m?dico. La sobredosis de donna puede ser potencialmente mortal. Si le recetan suplementos de donna, t?melos con jugo de naranja o un suplemento de vitamina?C. Cuando coma alimentos fortificados con donna o tome un suplemento de donna, tambi?n debe consumiralimentos que contengan donna naturalmente, harley carne, aves y pescado. Consumir alimentos ricos en donna naturalmente ayuda al organismo a absorber el donna que se a?yany a otros alimentos o que contiene un suplemento. El donna de origen animal se absorbe mejor que el donna de origen vegetal. ?Qu?? alimentos shi comer? Frutas Ciruelas pasas. Pasas de uva. Consuma frutas con alto contenido de vitamina C, por ejemplo, naranjas, pomelos y fresas, junto conlos alimentos ricos en donna. Verduras [place] (cocida). Guisantes. Br?coli. Verduras fermentadas. Consuma verduras ricas en vitamina C, harley las verduras de hoja, las dana, los morrones y los tomates, junto con los alimentos ricos en donna. Granos Cereales para el desayuno fortificados con donna. [place] de ariadna integral fortificado con donna. Arroz enriquecido. Granos germinados. Delores y otras prote?nakul H?gado de res. Carne de rylee. [place]. Marcos. Ostras. Camarones. At?n. Bret. Garbanzos. Sera secos. Tofu. Semillas de calabaza. Bebidas Jugo de tomate. Jugo de naranja reci?n exprimido. Jugo de ciruelas. T?? de hibisco. Batidos de desayuno instant?neos fortificados con donna. Dulces y postres Melaza dayna. Ali?os y condimentos Tahini. Salsa de soja fermentada. Otros alimentos Germen de ariadna. Es posible que los productos mencionados arriba no formen jose carlos lista completa de las bebidas o los alimentos recomendados. Consulte a un nutricionista para obtener m?s informaci?n. ?Qu?? alimentos shi limitar? Estos son los alimentos que deben limitarse al comer alimentos ricos en donna, ya que pueden reducir la absorci?n de donna por parte del cuerpo. Granos Cereales integrales. Cereal de salvado. Harina de salvado. Delores y otras prote?nakul Soja. Productos elaborados a base de prote?na de la soja. Frijoles negros. Lentejas. Frijoles mungo. Guisantes secos. L?cteos Leche. Crema. Queso. Yogur. Reques?n. Bebidas Caf?. T?? chi. Vino tinto. Dulces y postres [place]. Chocolate. Helados. Ali?os y condimentos [place]. Or?gano. Grandes cantidades de perejil. Es posible que los productos que se enumeran m?s arriba no constituyan jose carlos lista completa de los alimentos y las bebidas que debe limitar. Consulte a un nutricionista para obtener m?s informaci?n. Resumen El donna es un mineral que ayuda al organismo a producir hemoglobina. La hemoglobina es jose carlos prote?na de los gl?bulos rojos que transporta el ox?nellie a los tejidos del cuerpo. El donna es un componente natural de muchos alimentos, y muchos otros alimentos tienen donna agregado (est?n fortificados con donna). Cuando coma alimentos que contengan donna, debe tomarlos con alimentos ricos en vitamina C. La vitamina C ayuda al organismo a absorber el donna. Ciertos alimentos y bebidas impiden que el cuerpo absorba el donna adecuadamente, harley los cereales integrales y los productos l?cteos. Debe evitar consumir estos alimentos en la misma comida que aquellos con alto contenido de donna o con suplementos de donna. Esta informaci?n no tiene harley fin reemplazar el consejo del m?dico. Aseg?rese de hacerle al m?dicocualquier pregunta que tenga. Document Released: 2007-05-19 Document Updated: 2021-08-09 Document Reviewed: 2024-07-16 Elsevier Patient Education ? 2024 TDX. * Patient Education Note - Saba Sadler MD - 07/17/2025 6:13 PM EST Images from the original note were not included. Patient Education Table of Contents Cirug?a para evitar el embarazo (esterilizaci?n): lo que hay que saber (Surgery to Prevent (Sterilization): What to Know) To view videos and all your education online visit, [email or web address] or scan this QR code with your smartphone. Access to this content will in one year. Cirug?a para evitar el embarazo (esterilizaci?n): lo que hay que saber Surgery to Prevent (Sterilization): What to Know La cirug?a para evitar el embarazo tambi?n se denomina esterilizaci?n. Es permanente. Solo debe hacerse si est?? seguro de que no quiere tener hijos. En las mujeres, se cierran o se extirpan las trompas de Falopio. [place] impide que los ?vulos que liberan los ovarios entren en el ?tero. El esperma es incapaz de alcanzar los ?vulos. En los hombres, el conducto deferente se corta y luego se sandhya o quema (cauteriza). El conducto deferente es el tubo que transporta los espermatozoides desde los test?culos. La cirug?a impide el embarazo, ya que impide que el esperma pase a kimberly?s del conducto deferente y del pene lyla la eyaculaci?n. Tipos de cirug?as para evitar el embarazo Para las mujeres, las cirug?as incluyen: Ligadura laparosc?pica de trompas. En esta cirug?a, las trompas de Falopio se cortan, se atan, se sellan con calor o se obstruyen con un clip, un anillo o jose carlos abrazadera. Tambi?n puede extraerse jose carlos parte sharlene?a de cada trompa de Falopio. Se realiza a kimberly?s de varios arguelles sharlene?os con instrumentos que se introducen en el vientre. Ligadura de trompas posparto. [place] se hace a las pocas horas o d?as de tener un beb?. En esta cirug?a, las trompas de Falopio se cortan, se atan, se sellan con calor o se obstruyen con un clip, un anillo o jose carlos abrazadera. Tambi?n puede extraerse jose carlos parte sharlene?a de cada trompa de Falopio. Se hace a kimberly?s de un ?tere karmen en el vientre. Ligadura de trompas lyla jose carlos litzy?yuliana. En esta cirug?a, las trompas de Falopio se cortan, se atan, se sellan con calor o se obstruyen con un clip, un anillo o jose carlos abrazadera. Tambi?n puede extraerse jose carlos parte sharlene?a de cada trompa de Falopio. Se realiza en el mismo momento que un parto por litzy?yuliana. Para los hombres, las cirug?as incluyen: Vasectom?a con incisi?n. Se realizan gustavo o dos sharlene?os arguelles en el escroto. El conducto deferentese saca del escroto y luego se corta. El conducto deferente se sandhya o sella con calor y se vuelve a colocar dentro del escroto. El karmen se cerrar?? con puntos absorbibles. Vasectom?a sin bistur?. Se practica jose carlos punci?n en el escroto. El conducto deferente se saca del escroto y luego se corta. El conducto deferente se sandhya o sella con calor y se vuelve a colocar dentro del escroto. La abertura es sharlene?a y no necesitar?? puntos. ?Qu?? ventajas tienen las intervenciones quir?rgicas para evitar el embarazo? Suelen funcionar para toda la inocente. En general, son seguras. No afectan a las hormonas femeninas harley otros tipos de anticonceptivos. Por ello, no se clayton?n afectados los per?odos. El deseo y el rendimiento sexual no se clayton?n afectados. ?Cu?les son las desventajas de las cirug?as que impiden el embarazo? Riesgos de la cirug?a Los riesgos son poco frecuentes. Thibodeaux m?dico conversar?? con usted sobre ellos. Estos incluyen lo siguiente: Sangrado. Infecci?n. Problemas con la cicatrizaci?n de la herida. Reacciones a los medicamentos utilizados. Lesiones en ?rganos adyacentes. Riesgos tras la intervenci?n Despu?s de jose carlos cirug?a exitosa, es posible que tenga otros problemas. Los riesgos para las mujeres pueden incluir: El procedimiento no tiene ?xito. La esterilizaci?n es efectiva en sanchez 100?%, dennise puede fallar. Encasos raros, con el tiempo, las trompas de Falopio pueden volver a desarrollarse. Si esto ocurre, la tamar podr?a volver a quedar embarazada. Embarazo ect?amada. Es un embarazo que crece fuera del ?tero. Puede requerir un tratamiento de urgencia. Los riesgos para los varones pueden incluir: Hemorragia e hinchaz?n en el escroto. El procedimiento no tiene ?xito. Hay jose carlos probabilidad muy sharlene?a de que los extremos atados o cauterizados del conducto deferente puedan reconectarse. En araceli essence, el hombre podr?a dejar embarazada a jose carlos tamar. Otros riesgos pueden incluir: Cambiar de opini?n y decidir que quiere tener hijos. Estas cirug?as pueden revertirse, dennise la reversi?n no funciona siempre. Falta de protecci?n contra las infecciones de transmisi?n sexual (ITS). Preguntas para hacerle al m?dico ?Cu?l es la eficacia de estas cirug?as? ?Qu?? tipo de cirug?a es adecuada para m?? ?Es posible revertir el procedimiento si cambio de parecer? ?Qu?? puedo esperar despu?s de la cirug?a? D?nde obtener m?s informaci?n [place] [employer] ([employer] Ginec?logos): acog.org U.S. Department of Health and Human Services (Departamento de Dinah y Servicios Humanos de los [place]): womenshealth.gov U[employer] (Fundaci?n de Cuidados Urol?gicos): urologyhealth.org Esta informaci?n no tiene harley fin reemplazar el consejo del m?dico. Aseg?rese de hacerle al m?dicocualquier pregunta que tenga. Document Released: 2009-01-18 Document Updated: 2024-08-23 Document Reviewed: 2024-08-23 Elsevier Patient Education ? 2024 [employer] documented in this encounter Plan of Treatment Upcoming Encounters Date Type Department Care Team (Late st Contact Info) Description 07/30/2025 2:30 PM EST Clinical Support [facility] [address] [place] [address] 10/08/2025 1:30 PM EST Office Visit [facility] DENTAL [address], [place] [phone] VernaNatacha [address] [place] [address] Scheduled Orders Name Type Priority Associated Diagnoses Order Schedule Pap Smear Pathology and Cytology Routine Encounter for cervical Pap smear with pelvic exam Vaginal discharge Ordered: 07/17/2025 Chlamydia/N. Gonorrhoeae RNA, TMA, Urogenitial Microbiology Routine Encounter for cervical Pap smear with pelvic exam Vaginal discharge Ordered: 07/17/2025 Bacterial Vaginosis Microbiology Routine Encounter for cervical Pap smear with pelvic exam Vaginal discharge Expected: 07/17/2025 (Approximate), Expires: 07/17/2026 Fecal Globin By Immunochemistry Lab Routine Other iron deficiency anemia Expected: 07/17/2025 (Approximate), Expires: 07/17/2026 Chlamydia/N. Gonorrhoeae RNA, TMA, Vaginal Microbiology Routine Encounter for cervical Pap smear with pelvic exam Vaginal discharge Ordered: 07/17/2025 documented as of this encounter Visit Diagnoses Diagnosis Encounter for other general counseling or advice on contraception Other iron deficiency anemia Vaginal discharge Leukorrhea, not specified as infective documented in this encounter Additional Health Concerns Assessment Noted Time PHQ-9 Depression Total Score: 4 04/26/20 24 9:39 AM EDT documented as of this encounter Care Teams Manager Freelance Relationship Specialty Start Date End Date Saba Sadler MD [address] [place] [id number] PCP - General Internal Medicine 04/26/24 documented as of this encounter
--- OUTSIDE RECORDS SUMMARY | 2025-07-17 17:21 | XMS_ITS | Clinical Summary ---
Author Organization [employer] Address [address] [place] [address] Care Team Providers Care Principle Industrial Hygienist Name Role Phone Saba Sadler MD Primary [...] times daily. 30 tablet 05/25/20 25 Active acetaminophen (Tylenol 8 Hour) 650 MG ER tablet Take 1 tablet (650 mg) by mouth every 8 (eight) hours if needed for mild pain. Do not crush, chew, or split. 30 tablet 06/11/20 25 Active albendazole (Albenza) 200 MG tablet Take 2 tablets (400 mg) by mouth 1 (one) time for 1 dose. 2 tablet 07/17/20 25 025 Active tinidazole (Tindamax) 500 MG tablet Take 4 tablets (2,000 mg) by mouth with breakfast for 3 days. 12 tablet 07/17/20 25 025 Active ferrous sulfate (Fe Tabs) 325 (65 Fe) MG EC tablet Take 1 tablet (325 mg) by mouth with breakfast. Do not crush, chew, or split. 90 tablet 07/17/2025 2:05 PM EST 07/17/20 25 Active sulfamethoxazo le-trimethopri m (Bactrim DS) 800-160 MG tablet Take 1 tablet by mouth 2 times daily for 7 days. 14 tablet 06/29/2025 11:49 AM EST 06/14/20 025 ferrous sulfate (Fe Tabs) 325 (65 Fe) MG EC tablet Take 1 tablet (325 mg) by mouth with breakfast, with lunch, and with evening meal. Do not crush, chew, or split. 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 Secondary dental caries 04/01/2023 Acute cystitis 03/18/2023 Resolved Problems Problem Noted Date Diagnosed Date Resolved Date Decreased peripheral vision of both eyes 04/26/2024 08/30/2024 Assessment & Plan (04/26/2024 10:28 AM EDT): - needs eye clinic marilynn, osvaldo refer Encounters Date Type Department Care Team Description 07/17/2025 10:30 AM EST Procedure Visit [address] [address] Saba Sadler MD Encounter for cervical Pap smear with pelvic exam (Primary Dx); Encounter for other general counseling or advice on contraception; Other iron deficiency anemia; Vaginal discharge 07/17/2025 Travel 07/16/[address] [address] Saba Sadler MD Chart Prep 06/14/2025 Results Follow-Up [address] [address] Vidal Gleason MD Culture, Urine, Routine 06/11/2025 2:20 PM EDT Office Visit [facility] [address] [place] [phone] Vidal Gleason MD Complicated UTI (urinary tract infection) (Primary Dx); Fever, unspecified fever cause 06/11/2025 Orders Only [facility] [address] [place] [phone] Vidal Gleason MD 06/11/[address] [address] Saba Sadler MD telephone call 06/11/2025 Travel 05/28/2025 10:00 AM EDT Office Visit [facility] [address] [place] [phone] Mena-Molina , Qi, DDS Gingivitis due to dental plaque with local contributing factor (Primary Dx) 05/25/2025 3:30 PM EDT Office Visit [facility] [address] [place] [address] Teodoro Lezama, DDS Dental abscess (Primary Dx); Secondary dental caries 05/04/2025 9:00 AM EDT Office Visit [facility] [address] [place] [address] Trina-Molina , Qi, DDS Failing root canal (Primary Dx); Gingivitis due to dental plaque with local contributing factor 05/01/2025 Telephone [facility] [address] [place] [phone] Saba Sadler MD appointment cancelled 05/01/2025 Telephone [facility] [address] [place] [phone] Saba Sadler MD appt change from Last 3 Months Immunizations Immunization Administration [...] with others, in a hotel, in a custodial, living outside on the street, on a [...] 18 07/17/2025 12:12 PM EST Oxygen Saturation 98% 04/26/2024 9:38 AM EDT Inhaled Oxygen Concentration - - Weight 65.8 kg (145 lb) 07/17/2025 12:12 PM EST Height 149.9 cm (4' 11 ) 07/17/2025 12:12 PM EST Body Mass Index 29.29 07/17/2025 12:12 PM EST Plan of Treatment Upcoming Encounters Date Type Department Care Team (Late st Contact Info) Description 07/30/2025 2:30 PM EST Clinical Support [facility] [address] [place] [address] 10/08/2025 1:30 PM EST Office Visit [facility] [address] [place] [address] Natacha Gillespie [address] [place] [address] Health Maintenance Due Date Last Done Comments Disability Screening 1986 Alcohol/Substance Use Screening 1998 Family Planning (PISQ) 2001 HPV Vaccines (1 - 3-dose series) 2001 DTaP/Tdap/Td Vaccines (1 - Tdap) 2005 Hepatitis B Vaccines (1 of 3 - 19+ 3-dose series) 2005 Pap Smear 2007 Cervical Cancer Screening 2016 HPV/Cotest 2016 Dental Oral Exam 09/06/2023 03/05/2023 Dental Prophylaxis 09/11/2023 03/10/2023 COVID-19 Vaccine ( - season) 2025 09/01/2024 Influenza Vaccine (#1) 2025 09/01/2024 Depression Screening 04/26/2025 04/26/2024, 04/26/20 24 SDOH Screening 04/26/2025 04/26/2024 Dental X-Ray: Full Mouth 03/06/2026 03/05/2023 Dental X-Ray: Bitewings 05/05/2026 05/04/20 25, 12/01/2023, 09/22/2023, Additional history exists Tobacco Screening 07/17/2026 07/17/2025 Zoster Vaccines (1 of 2) 2036 RSV Patients and Patients Aged 60 years or older (1 - 1-dose 75+ series) 2061 HIV Screening Completed 04/27/2024 Hepatitis C Screening Completed 04/27/2024 HIB Vaccines Aged Out No longer eligi [...] Procedure Name Priority Date/Time Associated Diagnosis Comments CULTURE, URINE, ROUTINE Routine 06/11/2025 8:47 PM EDT URINALYSIS, COMPLETE, WITH REFLEX TO CULTURE Routine 06/11/2025 2:39 PM EDT Complicated UTI (urinary tract infection) POCT INFLUENZA B (ID NOW RAPID MOLECULAR) [...] to dental plaque with local contributing factor HEPATITIS PANEL, GENERAL Routine 04/27/2024 9:33 AM [...] Recently Relevant to Health Maintenance Results * Culture, Urine, Routine (06/11/2025 8:47 PM EDT) Urine Urine specimen obtained by clean catch procedure / Unknown 06/11/2025 8:47 PM EDT 06/11/2025 8:47 PM EDT Comment:[facility] - 06/15/2025 7:30 AM EDT Escherichia coli ESBL Note: NOTE: Extended-Spectrum Beta-Lactamase enzyme present Quant > 100,000 cfu/mL Escherichia coli: Ampicillin >=32(R) Escherichia coli: Cefazolin (Urine) >=32(R) Escherichia coli: Cefepime >=32(R) Escherichia coli: Ceftriaxone >=64(R) Escherichia coli: Ciprofloxacin >=4(R) Escherichia coli: Ertapenem <=0.12(S) Escherichia coli: Gentamicin >=16(R) Escherichia coli: Nitrofurantoin <=16(S) Escherichia coli: Trimethoprim/Sulfamethoxazole <=20(S) Specimen Source: Urine clean catch us Vidal Gleason MD LAB MICROBIOLOGY - GENERAL ORDER MICHA Final Result [facility] [address] [place] [phone] * (ABNORMAL) Urinalysis, Complete, with Reflex to Culture (06/11/2025 2:39 PM EDT) Color Urine Yellow [facility] Appearance Urine Cloudy [facility] PH 6.0 5.0 - 9.0 [facility] Glucose Urine UA Negative Negative mg/dL [facility] Urine Blood Small (1+)(A) Negative [facility] Specific [place] - Urine 1.015 1.005 - 1.025 [facility] Urine Protein Trace Neg-Trace mg/dL [facility] Urine Ketones Negative Negative mg/dL [facility] Nitrite Urine Positive(A) Negative [facility] Leukocyte Esterase Urine Large (3+)(A) Negative [facility] RBC Urine 3-5(A) 0 - 2 /HPF [facility] Urine WBC 21-50 0 - 5 /HPF [facility] Urine Squamous Epithelial Cell 3-5 0 - 2 /HPF [facility] Urine Bacteria 4+ None Seen [facility] Hyaline Casts, Urine 0-2 0 - 2 /LPF [facility] Urine 06/11/2025 2:39 PM EDT 06/11/2025 4:44 PM EDT Narrative [facility] - 06/11/2025 8:37 PM EDT Urine, Clean Catch us Vidal Gleason MD LAB URINE ORDERABLES Final Resul t Performing Organization Address [facility] de Phone Number [facility] [address] [place] [address] [phone] POCT Rapid Influenza B FLORIAN ID NOW (06/11/2025 2:38 PM EDT) Influenza B Negative Negative, Indeterminate [facility] QC Media Lot # [id number] [facility] Lot# Expiration Date [facility] Swab 06/11/2025 2:38 PM EDT us Vidal Gleason MD POINT OF CARE TEST ENTER/EDIT OR DERABLES Final Result Performing Organization Address City/[facility]/ZIP Co de Phone Number [facility] [address] [place] [phone] * POCT Rapid Influenza A FLORIAN ID NOW (06/11/2025 2:38 PM EDT) Influenza A Negative Negative, Indeterminate [facility] QC Media Lot # [id number] [facility] Lot# Expiration Date [facility] Swab 06/11/2025 2:38 PM EDT us Vidal Gleason MD POINT OF CARE TEST ENTER/EDIT OR DERABLES Final Result Performing Organization Address [facility] Co de Phone Number [facility] [address] [place] [phone] * POCT Rapid Covid-19 BinaxNOW (06/11/2025 2:35 PM EDT) Rapid COVID Ag Negative QC Media Lot # [id number] Lot# Expiration Date [id number] Swab 06/11/2025 2:35 [...] Hepatitis Panel, General (04/27/2024 9:33 AM EDT) Hepatitis A IgM Nonreactive Nonreactive [facility] Comment:IgM antibodies to CARTER V not detected; does not exclude earlyacute or recovered HAV infection. ~Hepatitis B Surface Antibody NONREACTIVE Nonreactive [facility] Comment:Nonreactive: < 8.00 mIU/mL Hepatitis B Core Antibody Nonreactive Nonreactive [facility] Hepatitis C Antibody Nonreactive Nonreactive [facility] Comment:Antibodies to HCV no t detected; does not exclude early acuteHCV infection. Hepatitis B Surface Ag Negative Negative [facility] Blood 04/27/2024 9:33 AM EDT 04/27/2024 11:19 AM EDT Saba Sadler MD LAB BLOOD ORDERABLES Fin al Result [facility] [address] [place] [phone] * HIV-1/2 Antigen and Antibodies, Fourth Generation, with Reflexes (04/27/2024 9:33 AM EDT) HIV AB/AG Nonreactive Nonreactive [facility] Comment:HIV-1 p24 Ag and/or HIV-1/HIV-2 Ab not detected.A test result that is nonreactive does not exclude thepossibility of exposure to or infection with HIV-1 and/orHIV-2. Nonreactive results in this assay for individualswith prior exposure to HIV-1 and/or HIV-2 may be due toantigen and antibody levels that are below the limit ofdetection of this assay.The [facility] HIV Ag/Ab Combo assay result andsupplemental assay results should be interpreted inconjunction with the patient's clinical presentation,history and other laboratory results. If the results areinconsistent with clinical evidence, additional testing issuggested to confirm the result. Blood Venous blood specimen / Unknown 04/27/2024 9:33 AM EDT 04/27/2024 11:19 AM EDT Saba Sadler MD LAB BLOOD ORDERABLES Fin al Result [facility] [address] [place] [phone] from Last 3 Months or Most Recently Relevant to Health Maintenance Insurance [facility] FULL DENTAL - N FULL (MEDICAID) DENTAL-[facility] MEDICAID LIMITED ADULT Care Teams Principle Industrial Hygienist Relationship Specialty Start Date End Date Saba Sadler MD [address] [place] [phone] PCP - General Internal Medicine 04/26/24
--- OUTSIDE RECORDS SUMMARY | 2025-07-17 17:21 | XMS_ITS | Encounter Summary ---
Author Organization [employer] Address [address] [facility] [address] [place] [address] Care Team Providers Care Business Economist Name Role Phone Saba Sadler MD Primary Care Provider + Reason for Visit * Reason Onset Date Comments Chart Prep 07/16/2025 Encounter Details Date Type Department Care Team ([facility] st Contact Info) Description 07/16/2025 Telephone [facility] [address] [place], [place] [phone] Saba Sadler MD [address] [place], [place] [phone] Chart Prep Social History Tobacco Use Types Packs/Day Years [...] with others, in a hotel, in a fdc, living outside on the street, on a [...] encounter Miscellaneous Notes * Telephone Encounter - Margie Rocha [place] - 07/16/2025 3:25 PM EST Chart Prep Labs: not applicable Images: not applicable Referrals: not applicable Vaccines due: Covid, Flu, Tdap, Hep B, and HPV Screenings: LMP, pap smear and PISQ Overdue care gaps: SBIRT, SDOH, PHQ-9, MADELINE-7, and Disability screen documented in this encounter Plan of Treatment Upcoming Encounters Date Type Department Care Team (Late st Contact Info) Description 07/30/2025 2:30 PM EST Clinical Support [facility] [address] [place] [address] 10/08/2025 1:30 PM EST Office Visit [facility] [address] [place] [address] Natacha Gillespie [address] [place] [address] documented as of this encounter Visit Diagnoses Not on filedocumented in this encounter Additional Health Concerns Assessment Noted Time PHQ-9 Depression Total Score: 4 04/26/20 24 9:39 AM EDT documented as of this encounter Care Teams Business Economist Relationship Specialty Start Date End Date Saba Sadler MD [address] [place] [address] PCP - General Internal Medicine 04/26/24 documented as of this encounter
--- OUTSIDE RECORDS SUMMARY | 2025-07-17 17:21 | XMS_ITS | Encounter Summary ---
Author Organization [employer] Address [address] [facility] [address], [place] [address] Care Team Providers Care Senior Electronics Technician Name Role Phone Saba Sadler MD Primary Care Provider + Reason for Visit * Reason Onset Date Comments New patient 05/18/2023 Encounter Details Date Type Department Care Team (Late st Contact Info) Description 05/18/[address] [facility] [address] [place], [place] [phone] Windy Leo MD [address] [place], [place] [phone] New patient Social History Tobacco Use Types [...] EDT DERRICK Mclaughlin called pt to Offer MECHANICAL PRODUCT DESIGN ENGINEER appt. Pt demographics and insurance information were verified. Pt states following medical conditions: NO Pt reports taking medications: NO Pt given MECHANICAL PRODUCT DESIGN ENGINEER appt with Dr. Petty on 07/02/2023 10:15 am. Pt will be sent appt reminder card and medical release form and agrees to complete and to return to medical records prior to MECHANICAL PRODUCT DESIGN ENGINEER appt. documented in this encounter Plan of Treatment Upcoming Encounters Date Type Department Care Team (Late st Contact Info) Description 07/30/2025 2:30 PM EST Clinical Support [facility] [address] [place] [address] 10/08/2025 1:30 PM EST Office Visit [facility] [address] [place] [address] Natacha Gillespie [address] [place] [address] documented as of this encounter Visit Diagnoses Not on filedocumented in this encounter Care Teams Senior Electronics Technician Relationship Specialty Start Date End Date Saba Sadler MD [address] [place] [address] PCP - General Internal Medicine 04/26/24 documented as of this encounter
--- OUTSIDE RECORDS SUMMARY | 2025-07-17 17:21 | XMS_ITS | Encounter Summary ---
Author Organization [facility] Address [address] [facility] [address] [place] [phone] Phone Care Team Providers Care Stitch Bonding Machine Operator Name Role Phone Pcp, Unknown Primary Care Provider Unavailabl e Encounter Details Date Type Department Care Team (Late st Contact Info) Description 01/19/2023 Procedure Pass [facility], Ct Scan - [facility] [address] [place] [address] Social History Tobacco Use Types Packs/Day Years [...] Value Date Recorded Sex Assigned at Female 06/12/2025 11:17 PM EDT Legal Sex Female 5:11 PM EDT Gender Identity Female 06/12/2025 11:17 PM EDT Sexual Orientation Don't know 06/12/2025 11 :17 PM EDT documented as of this encounter Functional Status * Calculated C-SSRS Risk Score (Lifetime/Recent) Answer Date of Assessment Author No Risk Indicated 01/19/2023 6:10 PM EDT Lion Lai, OSVALDO * [place] Suicide Severity Rating Scale (Screener/Recent Self-Report) Question Answer Date of Assessment Author 1. Wish to be (Past 1 Month) No 023 6:10 PM EDT Lion Lai RN 2. Non-Specific Active Suici charly Thoughts (Past 1 Month) No 01/19/2023 6:10 PM EDT Owen Lai RN 6. Suicidal Behavior (Lifetime) No 3 6:10 PM EDT Lion Lai, OSVALDO documented as of this encounter Plan of Treatment Not on file documented as of this encounter Visit Diagnoses Not on filedocumented in this encounter Care Teams Stitch Bonding Machine Operator Relationship Specialty Start Date End Date Pcp, Unknown PCP - General 01/19/23 documented as of this encounter Additional Source Comments The information contained in this document represents components of the legal health record. It is not the complete legal health record.[facility]
--- OUTSIDE RECORDS SUMMARY | 2025-07-17 17:21 | XMS_ITS | Encounter Summary ---
Author Organization [employer] Address [address] [place] [address] Care Team Providers Care Infrastructure Tech Name Role Phone Saba Sadler MD Primary Care Provider + Encounter Details Date Type Department Care Team (Latest Contact Info) Description 07/17/2025 Travel Social History Tobacco Use Types Packs/Day [...] Description 07/30/2025 2:30 PM EST Clinical Support [facility] [address] [place] [address] 10/08/2025 1:30 PM EST Office Visit [facility] [address] [place] [address] Natacha Gillespie [address] [place] [address] documented as of this encounter Visit Diagnoses Not on filedocumented in this encounter Additional Health Concerns Assessment Noted Time PHQ-9 Depression Total Score: 4 04/26/20 24 9:39 AM EDT documented as of this encounter Care Teams Infrastructure Tech Relationship Specialty Start Date End Date Saba Sadler MD [address] [place] [address] PCP - General Internal Medicine 04/26/24 documented as of this encounter
--- OUTSIDE RECORDS SUMMARY | 2025-07-17 17:21 | XMS_ITS | Encounter Summary ---
Author Organization [employer] [facility] Address [address] [facility] 7t [place] [address] Care Team Providers Care Recycling Attendant Name Role Phone Erika Cruz DO Primary Care Provider [phone] Saba Sadler MD Primary Care Provider + Encounter Details Date Type Department Care Team (Late Contact Info) Description 02/08/2023 Abstract [facility] [address] [place] [address] Social History Tobacco Use Types Packs/Day Years [...] Description 07/30/2025 2:30 PM EST Clinical Support [facility] [address] [place] [address] 10/08/2025 1:30 PM EST Office Visit [facility] [address] [place] [address] Natacha Gillespie [address] [place] [address] documented as of this encounter Visit Diagnoses Not on filedocumented in this encounter Care Teams Recycling Attendant Relationship Specialty Start Date End Date Erika Cruz DO [address] [place] [address] PCP - General Family Medicine 02/05/23 05/17/23 Saba Sadler MD [address] [place] [address] PCP - General Internal Medicine 04/26/24 documented as of this encounter
--- OUTSIDE RECORDS SUMMARY | 2025-07-17 17:22 | XMS_ITS | Clinical Summary ---
Author Organization [facility] Address [address] [place] [id number] Phone Care Team Providers Care Resource Center Teacher Name Role Phone Pcp, Unknown Primary Care Provider Unavailabl e Allergies No known active allergies Medications acetaminophen (TYLENOL) 650 MG CR tablet Take 650 mg by mouth every 8 (eight) hours as needed. 06/11/2025 Active naproxen (NAPROSYN) 375 MG tablet Take 1 tablet (375 mg total) by mouth 2 (two) times a day with meals. 20 tablet 06/13/2025 Active ciprofloxacin HCl (CIPRO) 500 MG tablet Take 500 mg by mouth 2 (two) times a day. 06/11/2025 Encounters Date Type Department Care Team Description 06/12/2025 11:20 PM EDT Ancillary Procedure [facility] [address] [place] [address] Diya Sampson MD 06/12/2025 9:22 PM EDT - 06/13/2025 1:33 AM EDT Emergency [facility] [address] [place] [address] Diya Sampson MD Discharge Disposition: Home or Self Care from Last 3 Months Social History Tobacco Use Types Packs/Day Years Used Date Smoking Tobacco: Never Assessed Education Answer Date Recorded Are you interested in more education? Not on elsi e 01/19/2023 Are you concerned about learning? Not on file 01/19/2023 No 01/19/2023 No 01/19/2023 Food Answer Date Recorded Within the past 6 months we worried whether our food would run out before we got money to buy more. Unable to assess 025 Within the past 6 months the food we bought just didn't last and we didn't have enough money to get more. Unable to assess 06/13/2025 Residential Stability Answer Date Recor ded What is your housing situation today? Unable to assess 06/13/2025 How many times have you moved in the past 12 wed ths? Unable to assess 06/13/2025 Paying for Meds Answer Date Recorded Do you have trouble paying for medicines? Unable to assess 06/13/2025 Paying Utility Bills Answer Date Record ed Do you have trouble paying y our heating or electricity bill? Unable to assess 06/13/2025 Transportation Answer Date Recorded Has the lack of transportati on kept you from medical appointments or from getting medications? Unable to assess 06/13/2025 Digital Access Answer Date Recorded No 06/13/2025 No 06/13/2025 Do you have reliable internet access at home? Un able to assess 06/13/2025 Do you have a device (e.g., phone, tablet, computer) with a working camera? Unable to assess 06/13/2025 Intimate Partner Violence Answer Date R ecorded Are you denied basic needs s uch as food, clothing, or medical care? No 06/12/2025 In the past 12 months have y ou been in a relationship with a person who hurts, threatens, or tries to control you? No 06/12/2025 Are you denied basic needs s uch as food, clothing, or medical care? No 06/12/2025 In the past 12 months have y ou been in a relationship with a person who hurts, threatens, or tries to control you? No 06/12/2025 Comments Unknown Sex and Gender Information Value Date Recorded Sex Assigned at Female 06/12/2025 11:17 PM EDT Legal Sex Female 5:11 PM EDT Gender Identity Female 06/12/2025 11:17 PM EDT Sexual Orientation Don't know 06/12/2025 11 :17 PM EDT Last Filed Vital Signs Vital Sign Reading Time Taken Comments Blood Pressure 100/50 06/13/2025 1:32 AM EDT Pulse 76 06/13/2025 1:32 AM EDT Temperature 36.8 C (98.3 F) 06/13/2025 1:32 AM EDT Respiratory Rate 16 06/13/2025 1:32 AM EDT Oxygen Saturation 100% 06/13/2025 1:32 AM EDT Inhaled Oxygen Concentration - - Weight 65.8 kg (145 lb) 06/12/2025 9:20 PM EDT Height 144.8 cm (4' 9 ) 06/12/2025 9:20 PM EDT Body Mass Index 31.38 06/12/2025 9:20 PM EDT Plan of Treatment Health Maintenance Due Date Last Done Comments Adult Td,Tdap Booster 1986 DEPRESSION SCREENING 1998 SMOKING Hx and SMOKELESS TOB ACCO SCREENING 1999 HEPATITIS C SCREENING 2004 HIV ONE-TIME SCREENING (18-6 5 YEARS) 2004 PAP SMEAR 2007 INFLUENZA VACCINE (#1) 2025 COVID-19 VACCINE (2024-2 6 season) 2025 SCREENING FOR DIABETES 06/12/2028 06/12/2025 HEPATITIS A VACCINES Aged Out No long [...] this topic Medical Devices Not on file Procedures Procedure Name Priority Date/Time Associated Diagnosis Comments HCG, SERUM QUALITATIVE STAT 06/12/2025 11:40 PM EDT BASIC METABOLIC PANEL (BMP) STAT 06/12/2025 11:40 PM EDT CBC AND DIFFERENTIAL STAT 06/12/2025 11:40 PM EDT LAB ADD ON STAT 06/12/2025 11:40 PM EDT US BEDSIDE Routine 06/12/2025 11:15 PM EDT URINALYSIS WITH REFLEX TO URINE CULTURE STAT 06/12/2025 10:26 PM EDT from Last 3 Months Results * HCG, serum qualitative (06/12/2025 11:40 PM EDT) HCG, QUALITATIVE Negative Negative IU/L [facility] Blood 06/12/2025 11:4 0 PM EDT 06/12/2025 11:44 PM EDT us Diya Sampson MD LAB BLOOD BKR ORDERABLES Fin al Result Performing Organization Address City/State/[facility] Co de Phone Number [facility] [address] [place] [address] * (ABNORMAL) CBC and differential (06/12/2025 11:40 PM EDT) WBC 8.36 4.00 - 11.00 K/uL [facility] RBC 3.81(L) 4.00 - 5.20 M/uL [facility] HGB 10.7(L) 12.0 - 16.0 g/dL [facility] HCT 31.7(L) 36.0 - 46.0 % [facility] PLT 277 150 - 450 K/uL [facility] MCV 83.2 80.0 - 100.0 fL [facility] MCH 28.1 27.0 - 31.0 pg [facility] MCHC 33.8 32.0 - 36.0 g/dL [facility] RDW 13.9 11.5 - 14.5 % [facility] MPV 9.6 8.4 - 12.0 fL [facility] NRBC 0.00 0.00 /100 WBCs [facility] ABSOLUTE NRBC 0.00 0.00 K/uL [facility] DIFF METHOD Auto [facility] NEUTS 74.7 48.0 - 76.0 % [facility] LYMPHS 13.9(L) 18.0 - 41.0 % [facility] MONOS 10.3 4.0 - 11.0 % [facility] EOS 0.8 0.0 - 5.0 % [facility] BASOS 0.2 0.0 - 1.5 % [facility] Granulocytes, immature (%) 0.1 0.0 - 0.9 % [facility] ABSOLUTE NEUTS 6.24 1.92 - 7.60 K/uL [facility] ABSOLUTE LYMPHS 1.16 0.72 - 4.10 K/uL [facility] ABSOLUTE MONOS 0.86 0.16 - 1.10 K/uL [facility] ABSOLUTE EOS 0.07 0.00 - 0.50 K/uL [facility] ABSOLUTE BASOS 0.02 0.00 - 0.15 K/uL [facility] Granulocytes, immature 0.01 0.00 - 0.09 K/uL [facility] Blood 06/12/2025 11:4 0 PM EDT 06/12/2025 11:44 PM EDT Diya Sampson MD LAB BLOOD BKR ORDERABLES Fin al Result [address] [address] * Lab Add On: urine hcg (06/12/2025 11:40 PM EDT) TEST REQUESTED URINE HCG [facility] Comments (Chemistry) Add on order being processed. Floor or provider will be notified if testing cannot be performed [facility] 06/12/2025 11:4 0 PM EDT 06/12/2025 11:44 PM EDT Diya Sampson MD LAB BLOOD ORDERABLES Edited Result - Final Performing Organization Address [facility]/ZIP Co de Phone Number [address] [address] * (ABNORMAL) Basic metabolic panel (06/12/2025 11:40 PM EDT) SODIUM 134 133 - 146 mmol/L [facility] CHLORIDE 101 96 - 108 mmol/L [facility] POTASSIUM 3.6 3.3 - 5.1 mmol/L [facility] CO2 21 21 - 35 mmol/L [facility] BUN 11 6 - 19 mg/dL [facility] CREATININE 0.30(L) 0.5 - 1.5 mg/dL [facility] GLUCOSE 102(H) 70 - 99 mg/dL [facility] CALCIUM 8.9 8.4 - 10.3 mg/dL [facility] EGFR >120 >59 mL/min/1.7 3m2 [facility] Comment:Estimated glomerular filtration rate calculated using the CKD-EPI refit equation. ANION GAP 16 10 - 20 mmol/L [facility] Blood 06/12/2025 11:4 0 PM EDT 06/12/2025 11:44 PM EDT us Diya Sampson MD LAB BLOOD BKR ORDERABLES Fin al Result Performing Organization Address City/State/[facility] Co de Phone Number [address] [address] * US BEDSIDE (06/12/2025 11:15 PM EDT) Anatomical Region Laterality Modality Ultrasound Narrative 06/12/2025 11:15 PM EDT Diya Sampson MD 06/12/2025 11:29 PM Bedside Ultrasound Date/Time: 06/12/2025 11:15 PM Performed by: Diya Sampson MD Authorized by: Diya Sampson MD Exam Type: Renal Renal Exam Findings & Impression: Indications: patient with flank pain Right Kidney: the right kidney was visualized and hydronephrosis was not present Left Kidney: the left kidney was visualized and hydronephrosis was not present Overall Impression: negative Images: Images Saved: Yes Accession Number: [id number] us Diya Sampson MD IMG POINT OF CARE EXAMS Rachael oneill Result * (ABNORMAL) Urinalysis w/reflex Urine Culture (06/12/2025 10:26 PM EDT) COLOR Yellow Yellow [facility] CLARITY Clear [facility] GLUCOSE Negative Negative [facility] BILI Negative Negative [facility] KETONES Trace(A) Negative [facility] SPECIFIC GRAVITY 1.025 1.005 - 1.030 [facility] BLOOD Trace(A) Negative [facility] PH 7.0 5.0 - 8.0 [facility] Protein-UA Negative Negative [facility] NITRITE Negative Negative [facility] Leukocyte esterase, ur Negative Negative [facility] Urine (Urine) 06/12/2025 10: 26 PM EDT 06/12/2025 10:29 PM EDT us Verna Gibson PA-C LAB URINE ORDERABLES Final Result [facility] [address] [place] [address] from Last 3 Months Insurance [employer] Member Subscriber Plan / Payer (Ef fective 2023-Present) Name:Leesa Khan Relation to Subscriber:Self Name:Leesa Khan Payer ID:[id number] Group ID:Not on file Type:Medicaid Address: [address] [id number] [place] [employer] NET FULL [facility] LIMITED NET FULL [employer] LIMITED Member Subscriber Plan / Payer (Ef fective 2023-) Name:Bill Leesa Relation to Subscriber:Self Name:ArunaigorHeidi wilhelmseth Payer ID:[id number] Group ID:Not on file Type:Medicaid Address: [address] [id number] SAFETY NET FULL [employer] HEALTH SAFETY NET FULL [facility] LIMITED [facility] NET FULL Care Teams Resource Center Teacher Relationship Specialty Start Date End Date Pcp, Unknown PCP - General 01/19/23 Additional Source Comments The information contained in this document represents components of the legal health record. It is not the complete legal health record.[facility]
[2025-07-17 23:55] LABS: CT PCR NOT DETECTED (Not Detect.); NG PCR NOT DETECTED (Not Detect.)
== END 2025-07-17 16:26 | disposition home or self-care (01) ==
LOC: HO.LNP 16:25
PROVIDERS: Visit Provider Internal Medicine
DX: Z01.419 Encounter for gynecological examination (general) (routine) without abnormal findings (principal); N89.8 Other specified noninflammatory disorders of vagina; Z20.2 Contact with and (suspected) exposure to infections with a predominantly sexual mode of transmission
CPT/HCPCS: 81515; 87491; 87591; 87626; 88175